=== PATIENT | male | born 1995 | race Caucasian/White ===

== ENCOUNTER 2016-04-11 23:03 | Emergency (ER) | payer MEDICAID ==
[~2016-04-11] VITALS: Ht 172.7 cm; Wt 79.5 kg
[2016-04-11] MEDS ORDERED: ACETAMINOPHEN 500 MG TAB (TYLENOL) PO ONE (23:50)
[2016-04-12 00:15] LABS: BASOPHILS % (AUTO) 0 % (0-2); EOSINOPHILS # (AUTO) 0.2 10^3uL; EOSINOPHILS % (AUTO) 2 % (0-4); LYMPHOCYTES # (AUTO) 2.2 X10^3; MEAN CORPUSCULAR HEMOGLOBIN 28.5 PG (26.0-34.0); MEAN CORPUSCULAR HGB CONC 34.4 g/dL (31.0-37.0); MEAN CORPUSCULAR VOLUME 83 FL (80-100); MEAN PLATELET VOLUME 10.3 FL (6.0-9.5); MONOCYTES # (AUTO) 0.9 X10^3; MONOCYTES % (AUTO) 9 % (3-11); NEUTROPHILS # (AUTO) 6.5 X10^3; NEUTROPHILS % (AUTO) 66 % (51-67); PLATELET COUNT 358 10^3uL (150-450); WHITE BLOOD COUNT 9.83 10^3uL (4.0-11.0)
[2016-04-12 00:23] LABS: ALBUMIN 4.6 g/dL (3.4-5.0); ALKALINE PHOSPHATASE 81 U/L (38-126); ANION GAP 13.6 MEQ/L (3-15); BUN/CREATININE RATIO 15 (10-20); CALCULATED IONIZED CALCIUM 4.1 mg/dL (3.8-4.6); TOTAL PROTEIN 7.2 g/dL (6.4-8.5)
[2016-04-12 00:28] LABS: AMPHETAMINE SCREEN, URINE Negative (Negative); CANNABINOID SCREEN, URINE Negative (Negative); METHAMPHETAMINE SCREEN URINE S NEGATIVE (NEGATIVE); OPIATE SCREEN URINE Negative (Negative); PROPOXYPHENE STAT NEGATIVE (NEGATIVE)
--- NOTE | 2016-04-12 01:45 | NUR ---
Pt states that he wants to voluntarily go to [facility] to be admitted inpatient. Pt initially stated that he was not suicidal but did feel like he wanted to "harm his friend's family". 'Friend' being the person that commited suicide the night before but his feelings to "harm them weren't that strong." Pt states that they have "pushed him away" since the of his friend. I reached out to [facility] for a screener and they referred me to Arthur (screener) who stated that he did not meet criteria to be admitted at this time and that they did not accept Medicaid and that he was not suicidal or homicidal at this time. After talking to the family I found that there is a waiver set in place that allows them to go to [facility]. Pt agreed to go home and contract to be safe with 1:1 care from parents until tomorrow when his case technician can come over and be with him. Parents agreed to watch him 1:1 and reach out to his child support case officer. Dr. Ortez was willing to let him go home with this contract. After typing up his discharge the pt was a bit aggitated and stated that if he could not sleep alone in his room or be alone in his room throughout the night then he just wanted "to go to [facility]". I, politely, told him that he had not met criteria to be admitted inpatient to [facility] and that they couldn't take people at [facility] just because they didn't want to go home. He then stated that "He would just be better off then." I asked him if he felt suicidal and he stated "Yes, I am." Pt still does not have a plan to harm himself and is not homicidal but is suicidal and would like to voluntarily go to [facility] for treatment. Reached out to Jemima at [facility] again and she spoke to the provider that will give us the approval to accept him after she receives labs and summary report.
--- NOTE | 2016-04-12 02:58 | NUR ---
Report called to Jemima Kirkland RN.
--- NOTE | 2016-04-12 02:58 | NUR ---
Pt leaving to [place] via POV with Father. Pt contracted for safety for the ride to [place].
[2016-04-12 03:00] VITALS: BP 136/89
== END 2016-04-12 03:00 ==
LOC: ED 23:04
DX: F33.9 Major depressive disorder, recurrent, unspecified (principal)
CPT/HCPCS: 36415; 80053; 85025; 99284; A9270; G0478; G0480; 80307; 80320; 80329; 99283

== ENCOUNTER 2016-05-09 20:51 | Emergency (ER) | payer MEDICAID ==
[~2016-05-09] VITALS: Ht 175.3 cm; Wt 93.5 kg
[2016-05-09 21:52] LABS: BASOPHILS % (AUTO) 0 % (0-2); EOSINOPHILS # (AUTO) 0.3 10^3uL; EOSINOPHILS % (AUTO) 3 % (0-4); LYMPHOCYTES # (AUTO) 2.6 X10^3; MEAN CORPUSCULAR HEMOGLOBIN 27.9 PG (26.0-34.0); MEAN CORPUSCULAR HGB CONC 33.2 g/dL (31.0-37.0); MEAN CORPUSCULAR VOLUME 84 FL (80-100); MEAN PLATELET VOLUME 10.3 FL (6.0-9.5); MONOCYTES # (AUTO) 0.7 X10^3; MONOCYTES % (AUTO) 7 % (3-11); NEUTROPHILS # (AUTO) 6.1 X10^3; NEUTROPHILS % (AUTO) 63 % (51-67); PLATELET COUNT 347 10^3uL (150-450); WHITE BLOOD COUNT 9.65 10^3uL (4.0-11.0)
[2016-05-09 22:02] LABS: ALBUMIN 4.8 g/dL (3.4-5.0); ALKALINE PHOSPHATASE 90 U/L (38-126); ANION GAP 16.2 MEQ/L (3-15); BUN/CREATININE RATIO 13 (10-20); CALCULATED IONIZED CALCIUM 4.1 mg/dL (3.8-4.6); TOTAL PROTEIN 7.8 g/dL (6.4-8.5)
[2016-05-09] MEDS ORDERED: IBUPROFEN 800 MG (MOTRIN) TAB PO ONE (22:20)
[2016-05-09 22:50] LABS: AMPHETAMINE SCREEN, URINE Negative (Negative); CANNABINOID SCREEN, URINE Negative (Negative); METHAMPHETAMINE SCREEN URINE S NEGATIVE (NEGATIVE); OPIATE SCREEN URINE Negative (Negative); PROPOXYPHENE STAT NEGATIVE (NEGATIVE)
[2016-05-09] MEDS ORDERED: ONDANSETRON 2 MG/ML (Z0FRAN) 2 ML VIAL IV ONE (23:35)
[2016-05-09] MEDS ORDERED: fentaNYL 100 MCG/2 ML VIAL IV ONE (23:35)
--- NOTE | 2016-05-09 23:41 | NUR ---
NS NON ADMINISTER WRONG PATIENT
--- NOTE | 2016-05-09 23:55 | NUR ---
[facility] BACK CALL [facility], FAXED FACE SHEET AND PAPERWORK TO THEM FOR REVIEW PER THEIR REQUEST.
--- NOTE | 2016-05-10 00:17 | NUR ---
ROXANN FROM [facility] CALLED AND THE DOCTOR THERE SAID THEY ARE NOT WILLING TO ADMIT [facility] AT THIS TIME
--- NOTE | 2016-05-10 00:58 | NUR ---
STULL HEWER CALLED [facility] AND FAXED PW TO THEM FOR REVIEW. LET PT AND SEED SPECIALIST KNOW THAT [facility]AV[facility] ROBLERO NOT ABLE TO TAKE PT
--- NOTE | 2016-05-10 01:29 | NUR ---
[facility] TRANSP[facility] NURSE TALKED TO CARLITOS AT [facility] THEY DID GET THE FAX AND ARE REVIEWING IT
[2016-05-10 01:38] VITALS: BP 122/54
--- NOTE | 2016-05-10 01:38 | NUR ---
CARLITOS GANT FROM [facility] CALLED AND THEY ACCEPT CARE. SHE REPORTS THEY DO NOT NEED A DOC TO DOC. AND COY X[facility] ACCEPED CARE
--- NOTE | 2016-05-10 02:00 | NUR ---
DID LET PT KNOW THAT HE WOULD NOT BE ALLOWED PHONE OR OTHER BELONGINGS AT [facility] HE VOICED UNDERSTANDS.
--- NOTE | 2016-05-10 02:09 | NUR ---
CALLED [facility] FOR TRANSPORT
== END 2016-05-10 02:32 ==
LOC: ED 20:52
DX: F31.9 Bipolar disorder, unspecified (principal); R45.851 Suicidal ideations
CPT/HCPCS: 36415; 80053; 84443; 85025; 99283; A9270; G0478; G0480; 80307; 80320; 80329

== ENCOUNTER → 2016-05-10 | Outpatient (CLI) | payer MEDICAID | LOC: EMS 02:33 | DX: R45.851 Suicidal ideations (principal); F32.9 Major depressive disorder, single episode, unspecified ==

== ENCOUNTER 2016-07-05 05:48 | Emergency (ER) | payer MEDICAID ==
[~2016-07-05] VITALS: Ht 175.3 cm; Wt 90.9 kg
[2016-07-05 05:52] VITALS: BP 129/76
--- OUTSIDE RECORDS SUMMARY | 2016-07-05 05:52 | XMS REPORT | Continuity of Care Document ---
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 Loan Servicing Officer Name Role Phone [employer] Unavailable Unavailable Problems Problem Status Onset Date Classification Date Reported Comments Source Hypothyroidism (disorder) Active Problem 12/01/2013 [facility] Medications Medication Details Route Status Patient Instructions Ordering Provider Order Date Source levothyroxine 25 mcg (0.025 mg) oral tablet 25 mcg=1 tablet, PO, qDay, # 90 tablet, Refill(s) 3, Pharmacy: [facility] Abilify 2 mg oral tablet 2 mg=1 tablet, PO, qDay, # 30 tablet, Refill(s) 0 [facility] Levothroid 50 mcg (0.05 mg) oral tablet 50 mcg=1 tablet, PO, qDay, # 30 tablet, Refill(s) 0 [facility] levothyroxine 50 mcg (0.05 mg) oral tablet 0.05 mg=1 tablet, PO, qDay, # 90 tablet, Refill(s) 3, Pharmacy: [facility] Allergies, Adverse Reactions, Alerts Substance Category Reaction Severity Reaction type Status Date Reported Comments Source sulfa drugs drug allergy Change Substance: Moderate Allergy Active [facility] azithromycin drug allergy Change Substance: Moderate Allergy Active [facility] Immunizations Results Vital Signs Vital Sign Value Date Comments Source Diastolic Blood Pressure Cuff Monitored 66 mm[Hg] 07/18/2013 [facility] Heart Rate 67 bpm 07/18/2013 [facility] Systolic Blood Pressure Cuff Monitored 116 mm[Hg] 07/18/2013 [facility] Encounters Location Location Details Encounter Type Encounter Number Reason For Visit Attending Provider [id number] PH[facility]IC[facility] 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
--- OUTSIDE RECORDS SUMMARY | 2016-07-05 05:53 | XMS REPORT | Continuity of Care Document ---
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 Name Role Phone [employer] Unavailable Unavailable Problems Problem Status Onset Date Classification Date Reported Comments Source Hypothyroidism (disorder) Active Problem 12/01/2013 [facility] Medications Medication Details Route Status Patient Instructions Ordering Provider Order Date Source levothyroxine 25 mcg (0.025 mg) oral tablet 25 mcg=1 tablet, PO, qDay, # 90 tablet, Refill(s) 3, Pharmacy: [facility] Abilify 2 mg oral tablet 2 mg=1 tablet, PO, qDay, # 30 tablet, Refill(s) 0 [facility] Levothroid 50 mcg (0.05 mg) oral tablet 50 mcg=1 tablet, PO, qDay, # 30 tablet, Refill(s) 0 [facility] levothyroxine 50 mcg (0.05 mg) oral tablet 0.05 mg=1 tablet, PO, qDay, # 90 tablet, Refill(s) 3, Pharmacy: [facility] Allergies, Adverse Reactions, Alerts Substance Category Reaction Severity Reaction type Status Date Reported Comments Source sulfa drugs drug allergy Change Substance: Moderate Allergy Active [facility] azithromycin drug allergy Change Substance: Moderate Allergy Active [facility] Immunizations Results Vital Signs Vital Sign Value Date Comments Source Diastolic Blood Pressure Cuff Monitored 66 mm[Hg] 07/18/2013 [facility] Heart Rate 67 bpm 07/18/2013 [facility] Systolic Blood Pressure Cuff Monitored 116 mm[Hg] 07/18/2013 [facility] Encounters Location Location Details Encounter Type Encounter Number Reason For Visit Attending Provider ADM Date [id number] 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 Non Billable [id number] Jayesh Doyle 11/30/2013 11/30/2013 Active [facility] Procedures Plan of Care Social History Assessment and Plan Family History Value Date Source Advance Directives Order Name Results Value Date Source
== END 2016-07-05 06:15 | disposition home or self-care (01) ==
LOC: ED 05:49
DX: F41.9 Anxiety disorder, unspecified (principal)
CPT/HCPCS: 99283

== ENCOUNTER → 2016-07-05 | Outpatient (CLI) | payer MEDICAID ==
[~2016-07-05] MED LIST: ALBU8.5H6 INH; BUSP10TA95 PO; HYDR50TA77 PO; LEVO0.5P2 MC; PALI1.5T PO; QTP100T PO
== END ==
LOC: EMS 05:35
PROVIDERS: ATTEND Emergency Medicine
DX: R00.0 Tachycardia, unspecified (principal); R06.4 Hyperventilation; F41.8 Other specified anxiety disorders